=== PATIENT | female | born 1960 | race Caucasian/White ===

== ENCOUNTER → 2017-10-26 17:50 | Outpatient (CLI) | payer OTHER | END | disposition home or self-care (01) | LOC: RAD 17:50 | DX: R10.2 Pelvic and perineal pain (principal); Z01.818 Encounter for other preprocedural examination ==

== ENCOUNTER 2017-10-27 08:15 | Outpatient (CLI) | payer OTHER | END 2017-10-27 08:40 | disposition home or self-care (01) | LOC: MAMO-SONO 08:15 | DX: N64.4 Mastodynia (principal); N64.89 Other specified disorders of breast; N60.09 Solitary cyst of unspecified breast; Z12.31 Encounter for screening mammogram for malignant neoplasm of breast ==

== ENCOUNTER → 2017-10-27 | Outpatient (CLI) | payer OTHER | END | disposition home or self-care (01) | LOC: NUCLEAR 10-25 14:00 | DX: M81.6 Localized osteoporosis [Lequesne] (principal) ==

== ENCOUNTER 2018-09-28 10:16 | Outpatient (CLI) | payer OTHER | END 2018-09-28 10:27 | disposition home or self-care (01) | LOC: RAD 10:16 | DX: R05 Cough (principal) ==

== ENCOUNTER 2022-12-20 09:41 | Outpatient (CLI) | payer OTHER | END 2022-12-20 09:51 | disposition home or self-care (01) | LOC: MAMO-SONO 09:41 | PROVIDERS: ATTEND Obstetrics & Gynecology Gynecology | DX: N64.4 Mastodynia (principal); Z12.31 Encounter for screening mammogram for malignant neoplasm of breast ==